=== PATIENT | female | born 1975 | race Two or more races ===

== ENCOUNTER 2024-08-24 21:54 | Emergency (ER) | payer OTHER, SELFPAY ==
[2024-08-24 21:59] VITALS: BP 156/85
[2024-08-24 22:24] LABS: % Basophils 0.5 % (0-2); % Eosinophils 1.8 % (0-6); % Immature Granulocytes 0.4 % (0-0.5); % Lymphocytes 39.5 % (20.5-51.1); % Monocytes 7.5 % (1.7-9.3); % Neutrophils 50.3 % (42.2-75.2); Absolute Eosinophils 0.2 10^3/uL (0-0.7); Absolute Lymphocytes 3.3 10^3/uL (1.2-3.4); Absolute Monocytes 0.6 10^3/uL (0.1-0.6); Absolute Neutrophils 4.2 10^3/uL (1.4-6.5); Hematocrit 39.3 % (37.0-47.0); Mean Corp Hgb Conc. 35.6 g/dL (33.0-37.0); Mean Corpuscular Hgb 27.7 pg (27.0-31.0); Mean Corpuscular Volume 77.8 fL (81.0-99.0); Mean Platelet Volume 9.3 fL (7.4-10.4); Nucleated Red Blood Cells % 0 %; Platelet Count 288 10^3/uL (130-400); Red Blood Cell Count 5.05 10^6/uL (4.20-5.40); Red Cell Dist. Width 13.2 % (11.5-14.5); White Blood Cell Count 8.3 10^3/uL (4.8-10.8)
[2024-08-24 22:30] LABS: INR 1.02; PT 13.2 Sec (11.4-14.6)
[2024-08-24 22:31] LABS: APTT 26.6 Sec (23.4-35.0)
[2024-08-24 22:37] LABS: Blood Urea Nitrogen 15 mg/dl (7-17); Calcium 9.9 mg/dl (8.4-10.2); Carbon Dioxide 20 mmol/L (22-30); Chloride 105 mmol/L (98-107); Glucose 129 mg/dl (70-99); Sodium 139 mmol/L (135-145); eGFR > 60.00
[2024-08-24 22:43] LABS: Troponin I < 0.012 ng/ml
[2024-08-25 00:07] VITALS: BP 138/78
== END 2024-08-24 23:42 ==
LOC: EMR 21:54
PROVIDERS: Emergency Medicine
DX: R07.89 Other chest pain (principal); R06.02 Shortness of breath
CPT/HCPCS: 80048; 84484; 85025; 85610; 85730; 93005